=== PATIENT | female | born 1995 | race Caucasian/White ===

== ENCOUNTER 2020-01-24 01:47 | Inpatient (IN) ==
[2020-01-24] MEDS ORDERED: OXYTOCIN 30 UNITS/500 ML BAG IV PRN ×3 (02:28→13:27)
[2020-01-24 02:59] LABS: Hematocrit (blood only) 40.7 % (37-47); Hemoglobin 13.5 g/dL (12.0-16.0); Mean Corpuscular Hemoglobin 29.5 pg (25-34); Mean Corpuscular Volume 88.9 fL (80-100); Mean Platelet Volume 10.8 fL (7.4-10.4); Platelet Count 231 K/uL (130-400); RDW Coefficient of Variation 13.2 % (11.5-14.5); RDW Standard Deviation 42.3 fL (36.4-46.3); Red Blood Count 4.58 M/uL (4.2-5.4); White Blood Count 11.75 K/uL (4.8-10.8)
[2020-01-24 03:01] LABS: Mean Corpuscular Hgb Conc 33.2 g/dL (32-36)
[2020-01-24] MEDS: LACTATED RINGER'S 1,000 ML IV PRN ×2 (05:23→06:29)
[2020-01-24] MEDS ORDERED: ePHEDrine sulfate 50 MG/ML AMP ONE (05:30)
[2020-01-24] MEDS ORDERED: fentaNYL citrate 100 MCG/2 ML VIAL ONE (05:31)
[2020-01-24] MEDS ORDERED: BUPIVACAINE 0.25% 30 ML VIAL ONE (05:31)
[2020-01-24] MEDS ORDERED: fentaNYL 2MCG/ML ROPIV 1.25MG/ML 100 ML BAG EPI ONE (05:32)
--- NOTE | 2020-01-24 06:07 | Anesthesiology Consultation ---
Date of Service January 24, 2020 Assessment & Plan ASA ASA2 Proposed Anesthesia Anesthesia Type: Labor Epidural Risk / Benefits Reviewed With: PT / POA / Parent / Guardian, Accepts Plan and Informed Consent Obtained Additional Comments: video senior production manager used History Height/Weight Weight: 66.792 kg Allergies Allergy/AdvReac Type Severity Reaction Status Date / Time No Known Allergies Allergy Verified 01/23/20 11:03 Medications Home Medications Medication Instructions Recorded Confirmed Last Taken vit no.[id number] 800 tab PO DAILY 01/24/20 01/24/20 01/21/20 08:00 [ Vitamin] Active Medications Generic Name Dose Route Start Last Admin Trade Name Freq PRN Reason Stop Dose Admin Lactated Ringer's 1,000 mls @ 125 mls/hr 01/24/20 02:28 01/24/20 06:29 Lr IV 01/26/20 02:27 125 mls/hr .Q8H PRN Administration L&D Protocol Protocol Past Medical History Medical History Encounter for anatomic survey Hx of varicella No known health problems Exercise / Class Metabolic Activity II 4-5 Yardwork/Stairs/Walk up hill Past Family History Family History Grandfather (Paternal) Diabetes Family/Other Stroke Past Surgical History Surgical History No history of previous surgery Past Anesthesia History No Hx of Anesthesia Complications and No Family Hx of Anesthesia Complications History of PONV No Hx of PONV and No Hx of Motion Sickness Social History Smoking Status: Never smoker Do You Dip or Chew Tobacco: No Hx Alcohol Use: No Hx Substance Use: No substance use type: does not use Review of Systems denies fever/cough/ colds/ chest pain/ SOB/ RANDI Constitutional: no fever and no chills Respiratory: no cough and no dyspnea denies RANDI Cardiovascular: no chest pain and no dyspnea on exertion Physical Exam Vital Signs Last Vital Signs Temp 37.1 C 01/24/20 05:15 Pulse 68 01/24/20 06:31 Resp 18 01/24/20 05:30 BP 114/74 01/24/20 06:31 Pulse Ox 99 01/24/20 06:28 ENMT Mouth: no TMJ abnormality and no dentition abnormality Thyromental Distance: > or= 3.5 Finger Breadths Mallampati Class: II Neck neck extension not limited Respiratory normal respiratory effort; no respiratory distress Auscultation: lungs clear to auscultation bilaterally Cardiovascular Rate/Rhythm: regular rate and regular rhythm Neurologic moves all extremities Psychiatric Orientation: alert and oriented x 3 Testing Laboratory Results 01/24/20 02:38
[2020-01-24] MEDS ORDERED: DiphenhydrAMINE HCL 50 MG/ML VIAL IV PRN (06:33)
[2020-01-24] MEDS ORDERED: NALBUPHINE HCL INJ 10 MG/ML AMP IV PRN (06:33)
[2020-01-24] MEDS ORDERED: NALOXONE HCL 0.4 MG/1 ML VIAL/CARP IV PRN (06:33)
[2020-01-24] MEDS ORDERED: ePHEDrine sulfate 50 MG/ML AMP IV PRN (06:33)
[2020-01-24] MEDS ORDERED: NALOXONE HCL 1 MG in SODIUM CHLORIDE 0.9% 1000ML 1,000 ML IV PRN (06:33)
[2020-01-24] MEDS ORDERED: ONDANSETRON INJ 2 MG/ML 2 ML VIAL IV PRN (06:33)
[2020-01-24] MEDS ORDERED: fentaNYL 2MCG/ML ROPIV 1.25MG/ML 100 ML BAG EPI PRN (06:33)
--- NOTE | 2020-01-24 07:46 | History & Physical Report ---
Date of Service January 24, 2020 Assessment & Plan (1) Supervision of normal intrauterine in primigravida: admit. AROM History of Present Illness Primary Care Provider: NO PCP G1 for induction today who presented in active labor this early am. Uncomplicated. 6cm on arrival. Requested epidural Allergies Allergy/AdvReac Type Severity Reaction Status Date / Time No Known Allergies Allergy Verified 01/23/20 11:03 Home Medications Home Medications Medication Instructions Recorded Confirmed Type vit no.[id number] 800 tab PO DAILY 01/24/20 01/24/20 History [ Vitamin] Patient History Medical History Encounter for anatomic survey Hx of varicella No known health problems Surgical History No history of previous surgery Family History Grandfather (Paternal) Diabetes Family/Other Stroke Social History (Updated 09/28/19 @ 13:22 by Lara Kelley) Preferred Language: Fijian Communication Ability: Impaired Rn Cardiac Required: Yes Beliefs That Will Affect Care: None marital status: Single marital status details: Elder (23) [phone] (Amadeo) Current Living Situation: Significant Other Current Living Situation Comment: lives with FOB, no pets current occupational status: unemployed Other Information That Helps Us Care for You: No Feels Safe at Home: Yes Safety Concerns: Feels Safe At This Time Smoking Status: Never smoker Do You Dip or Chew Tobacco: No ; Second Hand Exposure: No ; Hx Alcohol Use: No Hx Substance Use: No Physical Exam Genitourinary: Manual OB Exam: + cervical dilation 7 cm, + cervical effacement 100% and + station -1 Results & Data Vital Signs (Past 12 Hours) Vital Signs Temp Pulse Pulse Resp BP BP Pulse Ox 01/24/20 07:43 65 99 01/24/20 07:38 58 L 98 01/24/20 07:37 57 L 104/72 01/24/20 07:33 65 97 01/24/20 07:28 61 97 01/24/20 07:23 63 104/67 98 01/24/20 07:18 63 99 01/24/20 07:13 63 98 01/24/20 07:08 65 98 05/19/20 07:03 61 109/70 98 20 06:58 62 98 0520 06:57 67 108/67 0520 06:53 61 98 20 06:52 62 105/68 20 06:48 61 107/71 99 01/24/20 06:45 18 01/24/20 06:43 67 98 01/24/20 06:42 67 106/62 01/24/20 06:40 18 01/24/20 06:38 69 99 01/24/20 06:37 63 108/68 01/24/20 06:35 80 18 106/71 01/24/20 06:33 63 108/69 98 01/24/20 06:31 68 18 114/74 05 06:29 63 18 110/69 01/24/20 06:28 73 99 01/24/20 06:27 66 18 115/69 01/24/20 06:25 66 18 118/73 01/24/20 06:23 70 99 01/24/20 06:18 70 99 01/24/20 06:13 75 100 01/24/20 06:11 18 01/24/20 06:08 74 99 01/24/20 06:00 18 01/24/20 05:30 18 01/24/20 05:17 60 124/85 01/24/20 05:15 98.8 F 60 18 124/85 05/20 04:00 98.4 F 01/24/20 02:00 98.2 F 60 18 127/85 05/20 01:55 60 127/85 05/20 01:52 61 137/90 Coding Level of Care Code None Diagnoses Supervision of normal intrauterine in primigravida Z34.00
[2020-01-24] MEDS ORDERED: bisacodyL 10 MG SUPP PR PRN (13:27)
[2020-01-24] MEDS ORDERED: HYDROCORTISONE ACETATE 25 MG SUPP PR PRN (13:27)
[2020-01-24] MEDS ORDERED: DIPHTHERIA/TETANUS/PERTUSSIS 0.5 ML SYR/VIAL IM ONE (13:27)
[2020-01-24] MEDS ORDERED: ACETAMINOPHEN 325 MG TAB PO PRN (13:27)
[2020-01-24] MEDS ORDERED: BENZOCAINE 20% AER SPR 82.5 GM CAN EXT PRN (13:27)
[2020-01-24] MEDS ORDERED: SUPERCREAM 0.870% 15 GM JAR EXT PRN (13:27)
--- NOTE | 2020-01-24 14:18 | Delivery Summary ---
DATE OF OPERATION: 01/24/2020 PROCEDURE: Normal spontaneous vaginal delivery with second-degree perineal laceration repair and right vaginal sidewall laceration repair. SURGEON: Melvin Josue MD PREOPERATIVE DIAGNOSES: 1. Single intrauterine at 40 weeks 3 days gestational age. 2. Spontaneous labor. 3. Late care. POSTOPERATIVE DIAGNOSES: Same status post delivery. ESTIMATED BLOOD LOSS: 300 mL DRAINS: None. FLUIDS: Continuous lactated ringer. URINE OUTPUT: Not measured. COMPLICATIONS: None. FINDINGS: Viable female infant with weight pending, Apgars of 8 and 9 at 1 and 5 minutes respectively. DESCRIPTION OF PROCEDURE: The patient progressed to 10 cm dilated, 100% effaced, +3 station, pushed over intact perineum with an epidural anesthesia and delivered a viable female infant with weight and Apgars as noted above. The patient pushed for approximately 6 contractions to achieve delivery of the head and the rest of the remaining body delivered over 2 additional pushes. The head of the came in ERROL position. The body and shoulders quickly followed. was noted to be vigorous soon after delivery, a 1-minute delayed cord clamping was initiated. Cord was then double clamped and cut. Attention was then turned to delivery of the placenta which was delivered intact with 3-vessel cord with gentle cord traction. On inspection of the perineum, vagina, and cervix, there was noted to be a second degree perineal laceration which was repaired in traditional crown stitch and a right sidewall extending into the right labia, which was repaired with 3-0 Vicryl in continuous running and mix of interrupted stitch. Needle, sponge and instrument counts were correct at the completion of the case. Mother and were stable in immediate post-delivery period. I attest to the content of the Intraoperative Record and any orders documented therein. Any exception s are noted below.
--- NOTE | 2020-01-24 14:40 | Anesthesia Procedure Note ---
Date of Service January 24, 2020 Anesthesia Post Epidural Note Vital Signs Vital Signs: Temp Pulse Resp BP Pulse Ox 36.8 C 75 18 108/61 93 01/24/20 10:15 01/24/20 14:37 01/24/20 11:00 01/24/20 14:37 01/24/20 13:03 Pain Intensity Abdomen: Pain Intensity: 7 Notes Mental Status: alert / awake / arousable and participated in evaluation Nausea / Vomiting: adequately controlled Pain: adequately controlled Airway Patency, RR, SpO2: stable & adequate BP & HR: stable & adequate Hydration State: stable & adequate Neuraxial Anesthesia: was administered and sensory block is resolving Anesthetic Complications: no major complications apparent and Pt Satisfied with anesthetic care Epidural: Removed without complications and With tip intact Notes: Epidural site clean, dry and intact. No signs of edema, erythema or bruising at insertion site. Pt instructed to request anesthesia if she has residual lower extremity numbness or if she develops lower extremity pain or weakness, back pain or headache.
[2020-01-24] MEDS: IBUPROFEN 600 MG TAB PO PRN (17:54)
[2020-01-24] MEDS: DOCUSATE SODIUM 100 MG CAP PO SCH (21:05)
[2020-01-25] MEDS: IBUPROFEN 600 MG TAB PO PRN ×4 (02:12→22:33)
--- NOTE | 2020-01-25 06:05 | Obstetrical Progress Note ---
Date of Service January 25, 2020 Assessment & Plan Admission and Anticipated Discharge Date Admission Date: January 24, 2020 24 yo s/p VD @ 40.3 complicated by lack of early care - PPD#1 - GBS negative, Blood Type O+ - Pain well controlled - Routine post- care - After discharge will have 6 week follow up with Dr. Josue. Supervising Physician Co-Signing Physician Notes Patient seen and evaluated and agree with the above findings and plan. Day 1 LTCS. Doing well. Routine care Subjective Doing well this morning, she is and feels that this is going well. Her pain is 2/10. She has been bleeding through a pad every 2 hours and states it has been consistent since delivery. She has only had fluids but has not had nausea or vomiting. Review of Systems Review of Systems: Denies fever, chills, and sweats. Denies shortness of breath, difficulty breathing, and palpitations. Admits feeling indigestion. Denies breast pain. Denies dysuria. Denies headache. Physical Exam Physical Exam: General: Alert, oriented. No acute distress. Cardiac: Regular rate and rhythm, no murmurs/rubs/gallops. Respiratory: Symmetrical chest rise. No respiratory distress. Abdomen: Soft, nontender, nondistended. Bowel sounds present. Uterus: Uterine fundus firm, palpable at the umbulicus. Lower Extremities: No lower extremity edema or swelling. No deep calf pain. Renny's negative bilaterally. Results & Data ([facility]) Vital Signs (Past 12 Hours) Vital Signs Temp Pulse Resp BP Pulse Ox 01/25/20 03:05 36.6 C 76 16 109/76 98 01/24/20 23:40 36.4 C L 69 16 100/64 100 01/24/20 19:35 36.4 C L 74 18 102/69 99 Resident Activity Tracking Resident Involvement: Resident Care Provided Care Provided: [facility]
[2020-01-25] MEDS: DOCUSATE SODIUM 100 MG CAP PO SCH ×2 (08:14→20:29)
[2020-01-25] MEDS: PRENATAL VITAMIN 1 TAB PO SCH (08:14)
[2020-01-25] MEDS ORDERED: bisacodyL 5 MG TABEC PO SCH (20:00)
--- NOTE | 2020-01-26 05:47 | Obstetrical Progress Note ---
Date of Service January 26, 2020 Assessment & Plan Admission and Anticipated Discharge Date Admission Date: January 24, 2020 24 yo s/p VD @ 40.3 complicated by lack of early care - PPD#2 - GBS negative, Blood Type O+ - Pain well controlled - Routine post- care - After discharge will have 6 week follow up with Dr. Josue. Supervising Physician Co-Signing Physician Notes Resident Physician Supervision Note: I was present with Dr. St during the history and exam. I discussed the case with the resident and agree with the findings and plan as documented in the note. Any exceptions or clarifications are listed here: Saw patient with garden implement mechanic. Pt desires d/c. Instructions given. F/U in 6 weeks for pp check Documented By: Lazaro Flor Jr, MD, FACOG Subjective A automotive tire testing supervisor was used. She is walking, voiding, and passing gas. She is eating a regular diet and has not nausea or vomiting. She describes her bleeding as, "light". She is and this is going well. Her pain is a 3/10 and improved with pain medications. She did not have any questions this morning. Review of Systems Review of Systems: Denies fever, chills, and sweats. Denies shortness of breath, difficulty breathing, and palpitations. Admits feeling indigestion. Denies breast pain. Denies dysuria. Denies headache. Physical Exam Physical Exam: General: Alert, oriented. No acute distress. Cardiac: Regular rate and rhythm, no murmurs/rubs/gallops. Respiratory: Symmetrical chest rise. No respiratory distress. Abdomen: Soft, nontender, nondistended. Bowel sounds present. Uterus: Uterine fundus firm, palpable 1 cm below the umbilicus. Lower Extremities: No lower extremity edema or swelling. Renny's negative bilate rally. Results & Data ([facility]) Vital Signs (Past 12 Hours) Vital Signs Temp Pulse Resp BP BP Pulse Ox 01/25/20 23:10 36.8 C 81 16 113/74 113/74 99 01/25/20 20:15 36.6 C 67 18 108/73 99 Resident Activity Tracking Resident Involvement: Resident Care Provided Care Provided: [facility]
[2020-01-26] MEDS: PRENATAL VITAMIN 1 TAB PO SCH (08:20)
[2020-01-26] MEDS: DOCUSATE SODIUM 100 MG CAP PO SCH (08:20)
[2020-01-26] MEDS: IBUPROFEN 600 MG TAB PO PRN (08:20)
== END 2020-01-26 12:55 | disposition home or self-care (01) | DRG 807 ==
LOC: OPB 01:47 → 4S1 01:49 → 4S2 17:45